=== PATIENT | male | born 1970 | race Two or more races ===

== ENCOUNTER 2024-03-27 23:10 | Inpatient (IN) | payer MEDICAID, OTHER ==
[~2024-03-27] VITALS: Ht 167.6 cm; Wt 78.0 kg
[2024-03-27 23:41] LABS: Basophils # (auto) 0.1 10 ^3/uL (0-0.2); Basophils % (auto) 0.9 % (0.0-2.0); Eosinophils # (auto) 0.1 10 ^3/uL (0-0.8); Eosinophils % (auto) 1.5 % (0.0-7.0); Hematocrit 45.9 % (41.0-53.0); Hemoglobin 15.5 g/dL (13.5-17.5); Lymphocytes # (auto) 1.3 10 ^3/uL (0.4-5.4); Lymphocytes % (auto) 24.1 % (10.0-50.0); Mean Corpuscular Hemoglobin 29.6 pg (28.0-32.0); Mean Corpuscular Hgb Conc. 33.7 g/dL (32.0-36.0); Mean Corpuscular Volume 87.8 fL (80.0-100.0); Monocytes # (auto) 0.5 10 ^3/uL (0-1.3); Monocytes % (auto) 8.6 % (0.0-12.0); Neutrophils # (auto) 3.6 10 ^3/uL (1.6-8.6); Neutrophils % (auto) 64.9 % (37.0-80.0); Nucleated Red Blood Cells % 0.1 %; Red Blood Cells 5.22 10^6/uL (4.5-5.90); Red Cell Distribution Width 14.6 % (11.8-14.3); White Blood Cell 5.6 10^3/uL (4.4-10.8)
[2024-03-27 23:46] VITALS: PULSE 77; RESP 26; O2SAT 94
[2024-03-27] MEDS: hydrALAZINE HCL 20 MG/ML VL IV ONE (23:50)
[2024-03-27] MEDS: cloNIDine HCL 0.1 MG TAB PO ONE (23:51)
[2024-03-27 23:55] LABS: INR 1.01 (0.9-1.15); Prothrombin Time 10.7 sec (9.3-11.8)
[2024-03-27 23:59] LABS: Alanine Aminotransferase 45 U/L (7-40); Albumin 4.4 g/dL (3.2-4.8); Alkaline Phosphatase 103 U/L (46-116); Anion Gap 9 (5-15); Aspartate Aminotransferase 27 U/L (13-40); BUN/Creatinine Ratio 13.5 (10.0-20.0); Blood Urea Nitrogen 10 mg/dL (9-23); Calcium 9.3 mg/dL (8.7-10.4); Carbon Dioxide 27 mmol/L (20-30); Chloride 104 mmol/L (98-107); Glucose 133 mg/dL (74-106); Potassium 3.9 mmol/L (3.5-5.1); Sodium 140 mmol/L (136-145)
[2024-03-28] VITALS (30 sets, daily range): BP systolic 108–169; BP diastolic 61–87; PULSE 60–90; RESP 11–23; TEMP 97.8–99; O2SAT 90–98
[2024-03-28] LABS: Bilirubin, Total 0.3 mg/dL (0.2-1.0); Total Protein 7.4 g/dL (5.7-8.2)
[2024-03-28] MEDS: ASPirin 325 MG TAB PO ONE (00:10)
[2024-03-28] MEDS: NITROGLYCERIN 2% OINT 1GM PKG TD ONE (00:13)
[2024-03-28] MEDS: METOPROLOL TARTRATE 1MG/1ML-5ML VIAL IV ONE (00:23)
[2024-03-28] MEDS: IOHEXOL 350 MG/ML 100ML IJ ONE (01:59)
[2024-03-28] MEDS ORDERED: ONDANSETRON HCL 4 MG/2 ML VIAL IV PRN (02:45)
[2024-03-28] MEDS ORDERED: NITROGLYCERIN 0.4 MG SL TAB SL PRN (02:45)
[2024-03-28 03:05] LABS: Chloride 105 mmol/L (98-107); Potassium 3.7 mmol/L (3.5-5.1); Sodium 138 mmol/L (136-145)
[2024-03-28 03:06] LABS: Anion Gap 11 (5-15); Calcium 9.4 mg/dL (8.7-10.4); Carbon Dioxide 22 mmol/L (20-30)
[2024-03-28] MEDS: ENOXAPARIN SOD 100 MG/1 ML SYRINGE SC ONE (03:09)
[2024-03-28] MEDS: ENALAPRILAT 1.25 MG/ML-1ML VIAL IV ONE (03:09)
[2024-03-28 03:11] LABS: BUN/Creatinine Ratio 13.4 (10.0-20.0); Blood Urea Nitrogen 9 mg/dL (9-23); Glucose 146 mg/dL (74-106)
[2024-03-28] MEDS: hydrALAZINE HCL 20 MG/ML VL IV PRN (09:11)
[2024-03-28] MEDS ORDERED: METOPROLOL TARTRATE 50 MG TAB PO SCH (10:00)
[2024-03-28] MEDS: LISINOPRIL 20 MG TAB PO SCH (10:22)
[2024-03-28] MEDS: NIFEdipine ER 30 MG TAB PO ONE (11:07)
[2024-03-28] MEDS: NIFEdipine ER 30 MG TAB PO SCH (11:13)
[2024-03-28] MEDS: NITROGLYCERIN 50MG/250ML 250 ML IV SCH (11:14)
[2024-03-28 14:18] LABS: Erythrocyte Sedimentation Rate 1 mm/hr (0-20)
[2024-03-28 14:36] LABS: Alanine Aminotransferase 47 U/L (7-40); Albumin 4.4 g/dL (3.2-4.8); Alkaline Phosphatase 100 U/L (46-116); Aspartate Aminotransferase 31 U/L (13-40); Bilirubin, Direct < 0.1 mg/dL (<0.3); Bilirubin, Total 0.4 mg/dL (0.2-1.0); Cholesterol 175 mg/dL (< 200); HDL Cholesterol 42 mg/dL (40-59); LDL Cholesterol 120 mg/dL (< 100); Magnesium 1.9 mg/dL (1.6-2.6); Total Protein 7.3 g/dL (5.7-8.2); Triglycerides 127 mg/dL (< 150)
[2024-03-28 14:40] LABS: Basophils # (auto) 0 10 ^3/uL (0-0.2); Basophils % (auto) 0.3 % (0.0-2.0); Eosinophils # (auto) 0 10 ^3/uL (0-0.8); Eosinophils % (auto) 0.2 % (0.0-7.0); Hemoglobin 15.9 g/dL (13.5-17.5); Lymphocytes # (auto) 1.4 10 ^3/uL (0.4-5.4); Lymphocytes % (auto) 12.6 % (10.0-50.0); Mean Corpuscular Hemoglobin 29.5 pg (28.0-32.0); Mean Corpuscular Hgb Conc. 33.8 g/dL (32.0-36.0); Mean Corpuscular Volume 87.3 fL (80.0-100.0); Monocytes # (auto) 0.7 10 ^3/uL (0-1.3); Monocytes % (auto) 6.6 % (0.0-12.0); Neutrophils # (auto) 8.6 10 ^3/uL (1.6-8.6); Neutrophils % (auto) 80.3 % (37.0-80.0); Nucleated Red Blood Cells % 0.3 %; Red Blood Cells 5.39 10^6/uL (4.5-5.90); Red Cell Distribution Width 14.4 % (11.8-14.3); White Blood Cell 10.7 10^3/uL (4.4-10.8)
[2024-03-28] MEDS: CARVEDILOL 3.125 MG TAB PO ONE (14:49)
[2024-03-28] MEDS: fentaNYL CITRATE 100 MCG/2 ML VL ONE (16:09)
[2024-03-28] MEDS: ANGIOMAX 250 MG VIAL IV ONE (16:09)
[2024-03-28] MEDS: VERAPAMIL 2.5MG/ML INJ 2ML VIAL IV ONE ×2 (16:09→16:24)
[2024-03-28] MEDS: hydrALAZINE HCL 20 MG/ML VL ONE (16:09)
[2024-03-28] MEDS: HEPARIN SODIUM (PORCINE) 5000 UNITS/ML 1ML VIAL ONE (16:09)
[2024-03-28] MEDS: SODIUM CHL 0.9% 0 ML ONE (16:10)
[2024-03-28] MEDS: LIDOCAINE 2%HCL (LOCAL ANESTH.) INJ 20ML MDV ONE (16:10)
[2024-03-28] MEDS: MIDAZOLAM HCL 2MG/2ML 2ml VIAL (1mg/ml) ONE (16:10)
[2024-03-28] MEDS: IODIXANOL 320MG/ML 100ML BTL IV ONE (16:10)
[2024-03-28] MEDS: CARVEDILOL 3.125 MG TAB PO SCH (21:42)
[2024-03-28] MEDS: ATORVASTATIN 20 MG TAB PO SCH (23:00)
[2024-03-29] VITALS (193 sets, daily range): BP systolic 111–170; BP diastolic 55–90; PULSE 70–103; RESP 10–28; TEMP 98.1–98.6; O2SAT 80–98
[2024-03-29 05:14] LABS: Basophils # (auto) 0.1 10 ^3/uL (0-0.2); Basophils % (auto) 0.6 % (0.0-2.0); Eosinophils # (auto) 0 10 ^3/uL (0-0.8); Eosinophils % (auto) 0.3 % (0.0-7.0); Hemoglobin 15.5 g/dL (13.5-17.5); Lymphocytes # (auto) 1.2 10 ^3/uL (0.4-5.4); Lymphocytes % (auto) 11.3 % (10.0-50.0); Mean Corpuscular Hemoglobin 30.1 pg (28.0-32.0); Mean Corpuscular Hgb Conc. 34.5 g/dL (32.0-36.0); Mean Corpuscular Volume 87.2 fL (80.0-100.0); Monocytes % (auto) 9.7 % (0.0-12.0); Neutrophils % (auto) 78.1 % (37.0-80.0); Red Blood Cells 5.16 10^6/uL (4.5-5.90); Red Cell Distribution Width 14.2 % (11.8-14.3); White Blood Cell 10.3 10^3/uL (4.4-10.8)
[2024-03-29 05:33] LABS: Alanine Aminotransferase 29 U/L (7-40); Albumin 3.9 g/dL (3.2-4.8); Alkaline Phosphatase 93 U/L (46-116); Anion Gap 10 (5-15); Aspartate Aminotransferase 11 U/L (13-40); BUN/Creatinine Ratio 18.5 (10.0-20.0); Bilirubin, Total 1.2 mg/dL (0.2-1.0); Blood Urea Nitrogen 15 mg/dL (9-23); Calcium 9.4 mg/dL (8.7-10.4); Carbon Dioxide 26 mmol/L (20-30); Chloride 102 mmol/L (98-107); Glucose 131 mg/dL (74-106); Magnesium 1.7 mg/dL (1.6-2.6); Potassium 3.8 mmol/L (3.5-5.1); Sodium 138 mmol/L (136-145); Total Protein 6.5 g/dL (5.7-8.2)
[2024-03-29] MEDS: MORPHINE SULFATE INJ 2 MG/ml SYRG IV PRN (06:33)
[2024-03-29] MEDS: ASPirin 81 mg TAB PO SCH (08:55)
[2024-03-29] MEDS: ACETAMINOPHEN 325 MG TAB PO PRN (08:58)
[2024-03-29] MEDS ORDERED: AMLO1TAB22 PO (09:12)
[2024-03-29] MEDS ORDERED: LORazepam 2MG/ML-1ML VIAL IV PRN (09:15)
[2024-03-29] MEDS: NITROGLYCERIN 50MG/250ML 250 ML IV SCH (12:02)
[2024-03-29] MEDS: NITROGLYCERIN 50MG/250ML 250 ML IV ONE (12:28)
[2024-03-29] MEDS: chlordiazePOXIDE HCL 25 MG CAP PO SCH (12:32)
[2024-03-29] MEDS: THIAMINE HCL 100 MG TAB PO SCH (12:32)
[2024-03-29] MEDS: MULTIPLE VITAMIN TAB PO SCH (12:32)
[2024-03-29] MEDS: FOLIC ACID 1 MG TAB PO SCH (12:32)
[2024-03-29 13:38] LABS: Urine Bacteria None Seen /hpf (None Seen)
[2024-03-29 13:57] LABS: Amphetamine Screen, Urine Neg (NEGATIVE)
[2024-03-29 13:58] LABS: Barbiturate Scree,Urine Neg (NEGATIVE); Benzodiazephine Screen, Urine Pos (NEGATIVE); Cannabinoid Screen, Urine Neg (NEGATIVE); Cocaine Screen, Urine Neg (NEGATIVE); Opiate Scree,Urine Pos (NEGATIVE); Phencyclidine Screen, Urine Neg (NEGATIVE)
[2024-03-29 14:15] LABS: Urine Blood Negative /uL (Negative); Urine Clarity Clear (Clear); Urine Color Light-Orange (Yellow); Urine Mucus FEW (None Seen); Urine Protein, UAD 1+ (Negative); Urine Specific Gravity 1.027 (1.001-1.035); Urine Urobilinogen Normal (Negative); Urine WBC 3 /hpf (0 - 3)
[2024-03-29] MEDS: CARVEDILOL 3.125 MG TAB PO SCH (22:27)
[2024-03-30] VITALS (10 sets, daily range): BP systolic 138–151; BP diastolic 69–83; PULSE 62–80; RESP 14–18; TEMP 36.4; O2SAT 86–98
[2024-03-30 06:12] LABS: Basophils # (auto) 0 10 ^3/uL (0-0.2); Basophils % (auto) 0.4 % (0.0-2.0); Eosinophils # (auto) 0.2 10 ^3/uL (0-0.8); Eosinophils % (auto) 2.1 % (0.0-7.0); Hematocrit 47.9 % (41.0-53.0); Hemoglobin 16.5 g/dL (13.5-17.5); Lymphocytes # (auto) 1.1 10 ^3/uL (0.4-5.4); Lymphocytes % (auto) 13.8 % (10.0-50.0); Mean Corpuscular Hemoglobin 29.9 pg (28.0-32.0); Mean Corpuscular Hgb Conc. 34.4 g/dL (32.0-36.0); Mean Corpuscular Volume 86.8 fL (80.0-100.0); Monocytes # (auto) 0.8 10 ^3/uL (0-1.3); Monocytes % (auto) 10.2 % (0.0-12.0); Neutrophils # (auto) 6.1 10 ^3/uL (1.6-8.6); Neutrophils % (auto) 73.5 % (37.0-80.0); Red Blood Cells 5.51 10^6/uL (4.5-5.90); Red Cell Distribution Width 14.2 % (11.8-14.3); White Blood Cell 8.3 10^3/uL (4.4-10.8)
[2024-03-30 06:31] LABS: Alanine Aminotransferase 24 U/L (7-40); Alkaline Phosphatase 86 U/L (46-116); Anion Gap 8 (5-15); Aspartate Aminotransferase 14 U/L (13-40); BUN/Creatinine Ratio 15.6 (10.0-20.0); Blood Urea Nitrogen 14 mg/dL (9-23); Calcium 9.3 mg/dL (8.7-10.4); Carbon Dioxide 27 mmol/L (20-30); Chloride 104 mmol/L (98-107); Glucose 105 mg/dL (74-106); Potassium 3.7 mmol/L (3.5-5.1); Sodium 139 mmol/L (136-145)
[2024-03-30 06:32] LABS: Bilirubin, Total 0.8 mg/dL (0.2-1.0); Total Protein 6.7 g/dL (5.7-8.2)
[2024-03-30] MEDS: NIFEdipine ER 30 MG TAB PO SCH (07:50)
[2024-03-30] MEDS ORDERED: LISI20TA56 PO (09:34)
[2024-03-30] MEDS ORDERED: NIFE1TAB31 PO (09:34)
[2024-03-30] MEDS ORDERED: ATOR20TA50 PO (09:34)
[2024-03-30] MEDS ORDERED: ASPI-325 PO (09:34)
[2024-03-30] MEDS ORDERED: CARV-214 PO (09:34)
== END 2024-03-30 14:45 | disposition home or self-care (01) | DRG 190 ==
LOC: ER 23:10 → TELE 03-28 02:36 → ICU CENTRL 03-28 22:38 → DOU IN ICU 03-29 19:53 → EAST 03-30 09:45
PROVIDERS: ADMIT Internal Medicine Pulmonary Disease; ATTEND Surgery
PROC: B211YZZ Fluoroscopy of Multiple Coronary Arteries using Other Contrast (ICD-10-PCS; principal; 2024-03-28)
PROC: 4A023N7 Measurement of Cardiac Sampling and Pressure, Left Heart, Percutaneous Approach (ICD-10-PCS; 2024-03-28)
DX: I21.4 Non-ST elevation (NSTEMI) myocardial infarction (principal); E66.9 Obesity, unspecified; I16.1 Hypertensive emergency; E78.5 Hyperlipidemia, unspecified; F10.139 Alcohol abuse with withdrawal, unspecified; Y90.9 Presence of alcohol in blood, level not specified; Z91.199 Patient's noncompliance with other medical treatment and regimen due to unspecified reason; Z79.899 Other long term (current) drug therapy; Z82.49 Family history of ischemic heart disease and other diseases of the circulatory system; Z91.148 Patient's other noncompliance with medication regimen for other reason; Z68.27 Body mass index [BMI] 27.0-27.9, adult
CPT/HCPCS: 36415; 70450; 80048; 80053; 80061; 80076; 80307; 81001; 83735; 83880; 84443; 84484; 85025; 85610; 85652; 85730; 86141; 87081; 93005; 93306; 93458; 93975; 96372; 96374; 96375; 96376; 99152; 99291; G0378; J2250; Q9967

== ENCOUNTER 2024-04-29 13:49 | Emergency (ER) | payer MEDICAID ==
[~2024-04-29] VITALS: Ht 154.9 cm; Wt 72.2 kg
[~2024-04-29 13:49] MED LIST: ASPI-325 PO; ATOR20TA50 PO; CARV-214 PO; LISI20TA56 PO; NIFE1TAB31 PO
[2024-04-29 14:40] VITALS: BP 152/76; PULSE 50; RESP 16; TEMP 98.1; O2SAT 98
[2024-04-29] MEDS ORDERED: NIFE1TAB31 PO (14:52)
[2024-04-29] MEDS ORDERED: LISI20TA56 PO (14:52)
== END 2024-04-29 15:15 | disposition home or self-care (01) ==
LOC: ER 13:49
DX: I10 Essential (primary) hypertension (principal); Z76.0 Encounter for issue of repeat prescription; Z79.899 Other long term (current) drug therapy

== ENCOUNTER 2024-11-08 21:47 | Emergency (ER) | payer MEDICAID, OTHER ==
[~2024-11-08] VITALS: Ht 157.5 cm; Wt 73.1 kg
[~2024-11-08 21:47] MED LIST changes: -NIFE1TAB31 PO
--- NOTE | 2024-11-08 22:08 | ED.PDOC ---
HPI (NEURO) HPI Comments HPI: 54 y/o M, presents to the ED for CC of left sided weakness. Patient relays, that he woke up this morning at 0400 to get ready for work, 0500 patient states that he began to experience extreme fatigue/weakness on his left side. Patient states, that at 0530 he went to go grab his daily cup of coffee with his left arm when he was unable to; causing him to drop the coffee onto his left thigh. Patient currently complains of left sided arm numbness/tingling, with associated symptoms of left sided facial droop and slurred speech. Patient comments, that he has PMHX of hypertension and is not complaint with his medications. CODE STROKE WAS ACTIVATED IMMEDIATELY UPON MY 1ST EVALUATION IN TRIAGE. Initial Vitals: Temp: 99.0 BP:263/117 HR:65 RR: 18 O2 Sat:99 Past Medical History: HTN, HLD Past Surgical History: Denies Social History: Denies smoking, ETOH, and drug use Medication: Denies Allergies: NKDA FERRER. HPI: Poor Historian. Past Medcial History: Past Surgical History: REVIEW OF SYSTEMS: CONSTITUTIONAL: Denies acute: fever, diaphoresis, chills, HEAD: Denies acute: , photophobia Eyes: Denies acute: Double vision, vision loss, eye pain, eye discharge. EARS: Denies acute: tinnitus, hearing loss, ear discharge, ear pain, THROAT: Denies acute: sore throat, swelling, difficulty swallowing , pain with swa llowing, change in voice. NECK: Denies acute: neck pain, neck swelling, stiff neck. HEART: Denies acute : chest pain, palpitations, LUNGS: Denies acute: SOB, wheezing, cough, hemoptysis ABDOMEN: Denies acute: abdominal pain, Nausea, Vomiting, diarrhea, melena , hematemesis, hematochezia SKIN: Denies acute: rash, redness, lesions, itchiness. EXTREMITIES: Denies acute: calf pain, , tingling, , denies pain in extremity. Denies acute: Low back pain. Neuro: Denies acute: tremors, seizure like activity, confusion, , change in mental status, loss of bowel or bladder function, cauda equina like symptoms. : Denies acute: dysuria, hematuria, flank pain, increase in urinary frequency. PSYCH: Denies acute: hallucination, suicidal ideation, homicidal ideation. PHYSICAL EXAM: General: no acute distress, awake and alert. Head: normocephalic, atraumatic. Neck: supple, trachea is midline, no swelling. Throat: Normal phonation. Eyes:, no erythema, no purulent discharge, no proptosis, no icterus. Heart: regular rate, regular rhythm, no significant murmur appreciated. Lungs: no apparent respiratory distress, Able to speak in full sentences. No wheezing, no rhonchi, no crackles. No stridors Clear to auscultation bilaterally. Abdomen: non tender to palpation, non distended, soft, no guarding, no rebound, + bowel sounds. Neuro: Awake, Alert, oriented to name, self, situation, follows commands GCS=15. Speech is normal. Skin: no petechia, no purpura, no cyanosis, non-pale, not jaundice. Lower extremities: --no - Pitting edema no deformity, no focal swelling, no calf TTP. Makes eye contact. moves all four extremities. Face: no apparent facial droop. Stroke: finger to nose cerebellar testing is sluggish on the left upper extremity. No pronator drift. Weaker left hand excelsior machine tender muscle compared to right. Weaker left lower extremity when asked to raise his lower extremity against resistance. PERRLA, EOM-I CN 2-12 are grossly intact, however he does report some decreased sensation on his left face compared to the right. No nystagmus. ED course: Radiologist called me and stated that patient has a intraparenchymal hematoma of the right basal ganglia with a 2.6 mm midline shift. Neurologist called back again at approximately 10:[address] scan report. He recommends nicardipine drip and systolic blood pressure goal of 140-160. Dr. Nielsen Time Seen by MD: 21:50 Primary Care Provider: KAYLYNN Reviewed Notes: Nurses Notes, Medications, Allergies Information Source: Patient Mode of Arrival: Ambulatory Severity: Moderate Dizziness/Weakness Severity: Unable to do activities Headache Severity: Moderate Timing: Hours Duration: Since onset Prehospital treatment: None Headache Location: Generalized Weakness Location: (L) Sided, (L) Arm, (L) Leg, Facial Numbness Location: (L) Sided, (L) Arm, (L) Leg, Facial Onset: At rest Circumstances: Spontaneous Symptoms: Weakness, Slurred speech, Difficulty talking During: Awake History of: None Modifying factors: Nothing Associated Signs and Symptoms: Headache, Weakness, Numbness Was a procedure done? Was a procedure done?: No Differential Diagnosis (SZ) Seizure: CVA/TIA CVA: Sarkar's Palsy, CVA, TIA X-Ray, Labs, Meds, VS Vital Signs Date Time Temp Pulse Resp B/P (MAP) Pulse Ox O2 Delivery O2 Flow Rate FiO2 11/08/24 22:50 60 16 97 Room Air* 0 21 11/08/24 22:50 98.0 60 16 230/90 (136) 97 98.0 11/08/24 22:45 61 231/89 11/08/24 22:37 60 230/90 11/08/24 21:50 99.0 59 18 263/117 (165) 98 Lab Test 11/08/24 22:00 Range/Units White Blood Count 8.2 4.4-10.8 10^3/uL Red Blood Count 5.05 4.5-5.90 10^6/uL Hemoglobin 15.1 13.5-17.5 g/dL Hematocrit 44.3 41.0-53.0 % Mean Corpuscular Volume 87.8 80.0-100.0 fL Mean Corpuscular Hemoglobin 29.9 28.0-32.0 pg Mean Corpuscular Hemoglobin Concent 34.0 32.0-36.0 g/dL Red Cell Distribution Width 13.7 11.8-14.3 % Platelet Count 229 140-450 10^3/uL Mean Platelet Volume 9.1 6.9-10.8 fL Neutrophils (%) (Auto) 62.6 37.0-80.0 % Lymphocytes (%) (Auto) 21.6 10.0-50.0 % Monocytes (%) (Auto) 12.2 H 0.0-12.0 % Eosinophils (%) (Auto) 2.4 0.0-7.0 % Basophils (%) (Auto) 1.2 0.0-2.0 % Neutrophils # (Auto) 5.2 1.6-8.6 10 ^3/uL Lymphocytes # (Auto) 1.8 0.4-5.4 10 ^3/uL Monocytes # (Auto) 1.0 0-1.3 10 ^3/uL Eosinophils # (Auto) 0.2 0-0.8 10 ^3/uL Basophils # (Auto) 0.1 0-0.2 10 ^3/uL Nucleated Red Blood Cells 0.1 % Prothrombin Time 10.8 9.3-11.8 sec Prothrombin Time INR 1.02 0.9-1.15 Activated Partial Thromboplast Time 29.9 24.5-34.5 SEC Sodium Level 138 136-145 mmol/L Potassium Level 3.7 3.5-5.1 mmol/L Chloride Level 106 98-107 mmol/L Carbon Dioxide Level 25 20-31 mmol/L Anion Gap 7 5-15 Blood Urea Nitrogen 11 9-23 mg/dL Creatinine 0.99 0.700-1.30 mg/dL Glomerular Filtration Rate Calc 91 >90 mL/min BUN/Creatinine Ratio 11.1 10.0-20.0 Serum Glucose 94 74-106 mg/dL Calcium Level 9.5 8.7-10.4 mg/dL Magnesium Level 2.0 1.6-2.6 mg/dL Total Bilirubin 0.7 0.2-1.0 mg/dL Aspartate Amino Transferase (AST) 75 H 13-40 U/L Alanine Aminotransferase (ALT) 201 H 7-40 U/L Alkaline Phosphatase 279 H 46-116 U/L Troponin I High Sensitivity 7 </=54 ng/L B-Type Natriuretic Peptide 35.23 0-100 pg/mL Total Protein 7.2 5.7-8.2 g/dL Albumin 4.5 3.2-4.8 g/dL Plasma/Serum Blood Alcohol < 3.0 <10 mg/dL Current Medications Medications (Trade) Dose Ordered Sig/Jovany Route Start Time Stop Time Status Last Admin Labetalol HCl (Labetalol HCl) 10 mg ONCE ONCE IV 11/08/24 22:15 11/08/24 22:16 DC 11/08/24 22:37 Levetiracetam 100 ml @ 400 mls/hr O IV 11/08/24 22:15 11/08/24 22:37 Nicardipine HCl 250 ml @ 50 mls/hr Q5H IV 11/08/24 22:45 11/08/24 22:[address] [address] Ph: [phone] DIAGNOSTIC IMAGING Diagnostic Imaging Report : [id number] Signed PATIENT: SOCORRO BRYAN ACCT: [id number] UNIT: [id number] : 1970 LOC: ER ROOM / BED: / AGE / SEX: 54 / M ADM STATUS: REG ER SERVICE 57 ORDERING PHYSICIAN: JC MAY DO PROCEDURE(s): CTH - STROKE CTH REASON: stroke like ORDER NUMBER(s): [id number], ACCESSION NUMBER(s): [id number] CLINICAL HISTORY: stroke like TECHNIQUE: Helical imaging carried out from skull base to vertex without intravenous contrast. This exam was performed according to our departmental dose optimization program. Up-to-date CT equipment and radiation dose reduction techniques are utilized as appropriate. [Radimetrics Exposure Report] CTDIVol: 52.78 mGy DLP: 149.58 mGy-cm WID: COMPARISON: CT HEAD WITHOUT CONTRAST on DOS: 03/28/24 FINDINGS: Small acute parenchymal hemorrhage in the right basal ganglia measuring 2.5 x 1.2 x 3.0 cm on series 2 image 28 and series 601, image 33 with mild surrounding vasogenic edema. Mild right cerebral mass effect by this hemorrhage which results in a minimal, 2.6 mm right to left midline shift. Basal cisterns are patent. The ventricles and subarachnoid spaces are normal in size and configuration. The cao white matter interfaces are maintained. The mastoid air cells and visualized paranasal sinuses are well-aerated. IMPRESSION: * Acute parenchymal hematoma in the right basal ganglia with mild surrounding vasogenic edema. * Mild right cerebral edema due to the hemorrhage with a minimal, 2.6 mm [id number] midline shift. * No descending transtentorial herniation. Critical Result: Right basal ganglia hemorrhage Findings discussed with JC MAY at 11/08/2024 10:30 PM, and acknowledged receipt and understanding of the findings. .. ATED BY: NIKHIL ABARCA MD DICTATED DATE/TIME: 11/08/242229 SIGNED BY: NIKHIL ABARCA MD SIGNED DATE/TIME: 11/08/242229 CC: [place] [id number] Ph: [phone] DIAGNOSTIC IMAGING Diagnostic Imaging Report : [id number] Signed PATIENT: SOCORRO BRYAN ACCT: [id number] UNIT: [id number] : 1970 LOC: ER ROOM / BED: / AGE / SEX: 54 / M ADM STATUS: REG ER SERVICE 57 ORDERING PHYSICIAN: JC MAY DO PROCEDURE(s): CXR1 - CHEST XRAY 1 VIEW REASON: stroke like ORDER NUMBER(s): [id number], ACCESSION NUMBER(s): [id number] CHEST RADIOGRAPH Indication: stroke like Technique: Single frontal view of the chest was obtained Comparison: None FINDINGS: Lines and Tubes: None Lungs: No focal consolidation. Pleura: No effusion. No pneumothorax. Cardiomediastinal contours: Cardiac size upper limits of normal Bones: No acute osseous abnormality. IMPRESSION: 1. Cardiac size upper limits of normal. ATED BY: LIA SCHNEIDER Jr., DO DICTATED DATE/TIME: 11/08/242246 SIGNED BY: LIA SCHNEIDER Jr., SIGNED DATE/TIME: 11/08/242246 CC: Time of 1ST Reevaluation: 22:20 Reevaluation 1ST: Unchanged Time of 2ND Reevaluation: 22:14 (Case was already discussed with the stroke neurologist on-call Dr. Nielsen. He said he will evaluate the patient on the camera. CT scan images looks like a hemorrhagic stroke.) Time of 3RD Reevaluation: 22:24 (The case was discussed with the [facility] team for higher level of care (HPI, physical exam, labs and diagnostic tests that were available at the time of disposition, ED course, treatment plan) on the phone. They agreed to accept the patient to their facility for further evaluation and treatment. No further recommendations. Spoke with Dr. Dagoberto Lyons. ) Patient Education/Counseling: Diagnosis, Treatment Family Education/Counseling: No Family Present Comments Patient presented with LEFT SIDED WEAKNESS workup was initiated. Patient was found with the above mentioned diagnosis. the following medications were ordered: LABETALOL HCL X2, KEPPRA, IV FLUIDS, nicardipine the following tests were ordered: LABS, CXR, CT HEAD CVA, CT HEAD NECK, ANGIO HEAD NECK Patient ED course and VS have been stabilized. Patient has been reassessed in the ED and remained in a stable condition. Pertinent incidental findings were discussed with the patient and/or family. Patient/family voices understanding and is agreeable with plan. Patient has been observed in the ED adequate length of time to insure improvement/stability. Escalation of care considered: Consideration of escalation to observation or admission Patient was TRANSFERRED to the medicine team for further evaluation and treatment of their presentation. All the reports of any imaging studies that were ordered by myself were reviewed by myself. Additional Information Departure 1 Departure Time of Disposition: 22:09 Impression: Primary Impression: Hemorrhagic stroke Additional Impression: Hypertensive crisis Disposition: 02 SHORT TERM HOSPITAL Condition: Critical Discharged With: Self Critical Care Note Critical Care Time?: No Heart Score Heart Score: Heart Score Response (Comments) Value History N/A 0 EKG N/A 0 Age N/A 0 Risk Factors N/A 0 Troponin N/A 0 Total 0 I personally scribed for CJ MAY DO ([email or web address]) on 11/08/24 at 22:08. Electronically submitted by Kendy Sanchez ([email or web address]). I personally scribed for ZEHRA MAYE J DO ([email or web address]) on 11/08/24 at 22:14. Electronically submitted by Kendy Sanchez ([email or web address]). I personally scribed for JC MAY J DO ([email or web address]) on 11/08/24 at 22:20. Electronically submitted by Kendy Sanchez ([email or web address]). I personally scribed for JC MAY J DO ([email or web address]) on 11/08/24 at 22:35. E lectronically submitted by Kendy Sanchez ([email or web address]). I personally scribed for ZEHRA MAYE J DO ([email or web address]) on 11/08/24 at 23:02. Elect ronically submitted by Maximiliano Suazo ([email or web address]). ZEHRA MAYE J DO Nov 08, 2024 22:08
[2024-11-08] MEDS ORDERED: LABETALOL INJECTION 250 MG in SODIUM CHL 0.9% 200 ML IV ONE (22:15)
[2024-11-08] MEDS ORDERED: LABETALOL HCL 20 MG/4 ML VL IV ONE (22:15)
[2024-11-08 22:18] LABS: Basophils # (auto) 0.1 10 ^3/uL (0-0.2); Basophils % (auto) 1.2 % (0.0-2.0); Eosinophils # (auto) 0.2 10 ^3/uL (0-0.8); Eosinophils % (auto) 2.4 % (0.0-7.0); Hematocrit 44.3 % (41.0-53.0); Hemoglobin 15.1 g/dL (13.5-17.5); Lymphocytes # (auto) 1.8 10 ^3/uL (0.4-5.4); Lymphocytes % (auto) 21.6 % (10.0-50.0); Mean Corpuscular Hemoglobin 29.9 pg (28.0-32.0); Mean Corpuscular Volume 87.8 fL (80.0-100.0); Monocytes % (auto) 12.2 % (0.0-12.0); Neutrophils # (auto) 5.2 10 ^3/uL (1.6-8.6); Neutrophils % (auto) 62.6 % (37.0-80.0); Nucleated Red Blood Cells % 0.1 %; Platelet Count (auto) 229 10^3/uL (140-450); Red Blood Cells 5.05 10^6/uL (4.5-5.90); Red Cell Distribution Width 13.7 % (11.8-14.3); White Blood Cell 8.2 10^3/uL (4.4-10.8)
[2024-11-08 22:31] LABS: INR 1.02 (0.9-1.15); Partial Thromboplastin Time 29.9 SEC (24.5-34.5); Prothrombin Time 10.8 sec (9.3-11.8)
[2024-11-08 22:33] LABS: Albumin 4.5 g/dL (3.2-4.8); Anion Gap 7 (5-15); BUN/Creatinine Ratio 11.1 (10.0-20.0); Bilirubin, Total 0.7 mg/dL (0.2-1.0); Blood Urea Nitrogen 11 mg/dL (9-23); Calcium 9.5 mg/dL (8.7-10.4); Carbon Dioxide 25 mmol/L (20-31); Chloride 106 mmol/L (98-107); Glucose 94 mg/dL (74-106); Potassium 3.7 mmol/L (3.5-5.1); Sodium 138 mmol/L (136-145); Total Protein 7.2 g/dL (5.7-8.2)
--- NOTE | 2024-11-08 22:33 | DVH ---
CLINICAL HISTORY: stroke like TECHNIQUE: Helical imaging carried out from skull base to vertex without intravenous contrast. This e xam was performed according to our departmental dose optimization program. Up-to-date CT equipment an d radiation dose reduction techniques are utilized as appropriate. [Radimetrics Exposure Report] CTDIVol: 52.78 mGy DLP: 149.58 mGy-cm WID: COMPARISON: CT HEAD WITHOUT CONTRAST on DOS: 03/28/24 FINDINGS: Small acute parenchymal hemorrhage in the right basal ganglia measuring 2.5 x 1.2 x 3.0 cm on series 2 image 28 and series 601, image 33 with mild surrounding vasogenic edema. Mild right cerebral mass effect by this hemorrhage which results in a minimal, 2.6 mm right to left midline shift. Basal ciste rns are patent. The ventricles and subarachnoid spaces are normal in size and configuration. The cao white matter i nterfaces are maintained. The mastoid air cells and visualized paranasal sinuses are well-aerated. IMPRESSION: * Acute parenchymal hematoma in the right basal ganglia with mild surrounding vasogenic edema. * Mild right cerebral edema due to the hemorrhage with a minimal, 2.6 mm [id number] midline shift. * No descending transtentorial herniation. Critical Result: Right basal ganglia hemorrhage Findings discussed with JC MAY at 11/08/2024 10:30 PM, and acknowledged receipt and understandin g of the findings. ..
--- NOTE | 2024-11-08 22:36 | BSKYNEURO ---
[facility] Note # Demographics Consult Type: Acute Stroke Level 2 (4.5-24 hrs) Patient Location: Emergency Room First Name: SOCORRO Last Name: CARISSA SERRANO Date of : 1970 Age: 54 Gender: Male Facility: [facility] Time of Initial Page (): 11/08/2024, 22:00 Time of Return Call (): 11/08/2024, 22:01 # HPI Chief Complaint: - weakness (focal) - numbness History: 54M with presents with left sided weakness and numbness. Symptoms started at 0500 this morning. Also with headache. BP 263/117 # Scores Time of exam and NIHSS (): 11/08/2024, 22:14 Level of Consciousness 1a: [0] = Alert; keenly responsive LOC Questions 1b: [0] = Answers both questions correctly LOC Commands 1c: [0] = Performs both tasks correctly Best Gaze 2: [0] = Normal Visual 3: [0] = No visual loss Facial Palsy 4: [0] = Normal symmetrical movements Motor Arm Left 5a: [1] = Drift Motor Arm Right 5b: [0] = No drift Motor Leg Left 6a: [0] = No drift Motor Leg Right 6b: [0] = No drift Limb Ataxia 7: [0] = Absent Sensory 8: [1] = Oonu-ey-dzbnhseg sensory loss Best Language 9: [0] = No aphasia Dysarthria 10: [0] = Normal Extinction and Inattention 11: [0] = No abnormality NIHSS Total: 2 # Data Time Head CT personally read by me (): 11/08/2024, 22:[address]: - preliminarily reviewed by me, please refer to radiology read for official reading right basal ganglia hemorrhage # Assessment Impression: - Intracerebral hemorrhage Hypertensive emergency # Plan Thrombolytic/Intervention: NOT IV Thrombolysis or IA Intervention candidate Thrombolytic Exclusion (< 3 hour window): - ICH Intraarterial Exclusion: - ICH Blood Pressure Management: - labetalol - nicardipine Target Blood Pressure: SBP 140-160 Other: - If patient has any neurological deterioration please call me back immediately - I have discussed my recommendations with the referring provider Disposition: consider transfer to tertiary facility for higher level neurological care # Logistics Attestation of consult completion: The patient is located at: [facility]. Facility staff participated in the visit. I performed this telemedicine visit from my offsite office utilizing interactive 2 way audio and visual telecommunication technology. Consent: Verbal consent was obtained from the patient and/or family for this encounter. Total time spent in telemedicine encounter: I spent 10 minutes reviewing clinical data and/or imaging, obtaining history, examining the patient, communicating with the onsite care team, and in preparation of this report. Electronically signed at 11/08/2024 22:35 ([place] Time) by George Bunch MD Yes GEORGE BUNCH MD Nov 08, 2024 22:36
[2024-11-08] MEDS: levETIRAcetam 500 mg/100ml 100 ML IV SCH (22:37)
[2024-11-08] MEDS: LABETALOL HCL 20 MG/4 ML VL IV ONE (22:37)
[2024-11-08 22:41] LABS: Alanine Aminotransferase 201 U/L (7-40); Alkaline Phosphatase 279 U/L (46-116); Aspartate Aminotransferase 75 U/L (13-40)
[2024-11-08 22:50] VITALS: PULSE 60; RESP 16; TEMP 98; O2SAT 97
--- NOTE | 2024-11-08 22:50 | DVH ---
CHEST RADIOGRAPH Indication: stroke like Technique: Single frontal view of the chest was obtained Comparison: None FINDINGS: Lines and Tubes: None Lungs: No focal consolidation. Pleura: No effusion. No pneumothorax. Cardiomediastinal contours: Cardiac size upper limits of normal Bones: No acute osseous abnormality. IMPRESSION: 1. Cardiac size upper limits of normal.
[2024-11-08 23:10] VITALS: BP 156/82; PULSE 70; RESP 18; O2SAT 97
--- NOTE | 2024-11-09 04:04 | ECG ---
[facility] Test Date: 2024-11-08 Test Time: 23:04:12 Pat Name: SOCORRO FERRER SERRANO Department: ER Room: Gender: M Supervisor Cook Room: ER : 1970 Requested By: JC MAY Order Number: [id number] Reading MD: Measurements Intervals [place] Rate: 76 P: 8 [place]: 141 QRS: 89 QRSD: 104 T: 6 QT: 410 QTc: 462 Interpretive Statements Sinus rhythm Borderline T abnormalities, inferior leads Baseline wander in lead(s) I,II,aVR Please click the below link to view image of tracing.
[2024-11-09] MEDS ORDERED: IOHEXOL 350 MG/ML 100ML IJ ONE (05:26)
== END 2024-11-08 22:58 | disposition short-term general hospital (02) ==
LOC: ER 21:47
DX: I63.9 Cerebral infarction, unspecified (principal); I16.9 Hypertensive crisis, unspecified; E78.5 Hyperlipidemia, unspecified
CPT/HCPCS: 36415; 70450; 71045; 80053; 80320; 83735; 83880; 84484; 85025; 85610; 85730; 93005; 96365; 96368; 96375; 99285; J1953; J7050; 80307